=== PATIENT | female | born 1950 | race Caucasian/White ===

== ENCOUNTER 2017-10-01 06:17 | Day surgery (SDC) | payer MEDICARE ==
[2017-09-22 11:38] VITALS: BP 149/92
[~2017-10-01] VITALS: Ht 162.6 cm; Wt 51.6 kg
[~2017-10-01 06:17] MED LIST: METR500T PO; NEOM500T PO; NO MEDICATIONS; OXYC-302 PO
[2017-10-01] MEDS ORDERED: SIMETHICONE DROPS 40 MG/0.6 ML BOTTLE ONE (06:48)
[2017-10-01] MEDS ORDERED: LACTATED RINGERS 1,000 ML IV SCH (07:29)
[2017-10-01] MEDS ORDERED: PROPOFOL 10 MG/ML, 20ML ONE (09:08)
[2017-10-01] MEDS ORDERED: ACETAMINOPHEN 325 MG TABLET PO PRN (10:00)
[2017-10-01] MEDS ORDERED: OXYcodone 5 MG/5 ML ORAL.SOL UDC PO PRN (10:00)
[2017-10-01] MEDS ORDERED: ONDANSETRON 2MG/ML, 2ML IVPush PRN (10:00)
[2017-10-01] MEDS ORDERED: HYDROcodone/APAP 7.5-325MG/15ML UDC PO PRN (10:00)
[2017-10-01] MEDS ORDERED: FENTANYL PF 100 MCG/2ML IV PRN (10:00)
== END 2017-10-01 10:50 ==
LOC: OUT 06:17
PROVIDERS: ATTEND Colon & Rectal Surgery
DX: Z09 Encounter for follow-up examination after completed treatment for conditions other than malignant neoplasm (principal); Z85.038 Personal history of other malignant neoplasm of large intestine; Z90.49 Acquired absence of other specified parts of digestive tract; K57.30 Diverticulosis of large intestine without perforation or abscess without bleeding; J45.909 Unspecified asthma, uncomplicated; Z98.51 Tubal ligation status; Z86.010 Personal history of colon polyps
CPT/HCPCS: 45378; 93005; J2704; J7120

== ENCOUNTER → 2017-10-13 | Outpatient (CLI) | payer MEDICARE ==
[~2017-10-13] MED LIST changes: +OMNIPAQUE 350 MG/ML, 100ML BOTTLE ONE
== END | disposition home or self-care (01) ==
LOC: CFH 12:35
PROVIDERS: ATTEND Colon & Rectal Surgery
DX: C18.9 Malignant neoplasm of colon, unspecified (principal); K76.89 Other specified diseases of liver
CPT/HCPCS: 71260; 74177; Q9967